=== PATIENT | female | born 1945 | race African-American/Black ===

== ENCOUNTER → 2016-07-17 | Outpatient (CLI) | payer OTHER ==
[~2016-07-17] VITALS: Ht 175.3 cm; Wt 92.5 kg
[~2016-07-17] MED LIST: CINNAMON PO; CO Q-10100 MG PO; HYDROCODONE-AP1 EAC6 PO; LOSARTAN-HCTZ1 EAC3 PO; METFORMIN HCL500 MG PO; NABUMETONE 750750 M1 PO; OMEGA-31000 M1 PO; PRAVACHOL40 MG PO; RESVERATROL100 MG PO; VITAMIN D1000 UNI1 PO
--- NOTE | ~2016-07-17 | HPC ---
[facility] [place] [address] PAIN MANAGEMENT CONSULTATION Name: WESSONIA Viveros Room #: REG [facility] Aniya#: [id number] Admission: 07/17/16 Attend Phys: Neri Chatterjee DO Discharge: Date of : 45 Report #: [id number] THIS REPORT FOR: //name// CC: Marita Chatterjee The patient is a very pleasant 71-year-old female, prior seen in the pain clinic, given a right L4-L5 transforaminal epidural injection on 03/02/2016. This afforded up to 50% relief, but pain, somewhat recurred. She was last seen on 06/26/2016. We sought authorization for repeat lumbar epidural injection. We elected to proceed with a midline approach today, and see if we can get little better coverage. The patient notes the pain continues to be problematic, rates it at 9/10, low back, right leg, lateral aspect. The pain is constant, sharp, and burning, exacerbated with walking and any activities. Physical exam is unchanged from her last visit. ASSESSMENT: Symptomatic lumbar radiculopathy secondary to spinal stenosis. PROCEDURE: Lumbar epidural injection under fluoroscopy. PROCEDURE NOTE: After both written and informed consent to include risk of spinal cord damage, increased pain, weakness and dural puncture, the patient was taken to the fluoroscopy suite, placed in the prone position. After sterile prep and drape, a skin wheal with lidocaine was raised. A 22-gauge epidural Tuohy needle was inserted in the midline at L4-L5 with good loss to resistance. Negative aspiration for cerebrospinal fluid or blood was noted. Then 1 mL of Omnipaque under biplanar fluoroscopy showed good spread within the epidural space. This was followed with 80 mg of triamcinolone plus 1 mL of 1.5% preservative-free Xylocaine, 0.5 mL Xylocaine was then injected to flush the needle; it was removed. The patient was monitored for an appropriate period of time and discharged in good and stable condition. <ELECTRONICALLY SIGNED> By: Neri Chatterjee DO 07/22/16 1031 [id number] Neri Chatterjee DO /nt
[2016-07-17 08:43] VITALS: BP 133/73
== END ==
LOC: PAIN 07:02
DX: M54.16 Radiculopathy, lumbar region (principal); M48.06 Spinal stenosis, lumbar region; I10 Essential (primary) hypertension

== ENCOUNTER → 2017-02-22 | Outpatient (CLI) | payer OTHER ==
[~2017-02-22] VITALS: Ht 175.3 cm; Wt 95.3 kg
--- NOTE | ~2017-02-22 | HPC ---
[facility] [place] [address] PAIN MANAGEMENT CONSULTATION Name: WESSONIA [facility] [id number] Admission: 02/22/17 Attend Phys: Neri Chatterjee DO Discharge: Date of : 45 Report #: [id number] THIS REPORT FOR: //name// CC: Marita Chatterjee SUBJECTIVE: The patient is a 72-year-old female, prior seen in the pain clinic back in July. She had had a lumbar epidural injection at that time, L4-L5 with excellent relief of pain, greater than 60% for 2-3 months. She notes in October, she had a flare without specific antecedent trauma and overuse. To her credit, she has continued to exercise 3 times a week. She cannot take anti-inflammatory medications due to history of [id number]-[id number] diabetes and hypertension with concerns for renal dysfunction. She notes pain is constant, burning, and sharp, rates it as 7 on a VAS, exacerbated with standing, walking and generally any activity. Some relief when she is sitting or recumbent. PHYSICAL EXAMINATION: GENERAL: A 72-year-old female. BMI is 31 kilograms per meter squared. VITAL SIGNS: Stable. MUSCULOSKELETAL: Rises from chair using armrest. Modestly antalgic gait favoring the right leg. Pain is in the classic right L4 distribution radiating into the anterior lateral thigh down the anterior william and into the great toe. Has a slight decreased right hip flexion and extension strength. Patellar reflex is diminished on the right. SKIN AND INTEGUMENT: Intact. DIAGNOSTIC STUDIES: Reviewed diagnostic findings while quite dated from 2010. She notes significant stenosis at L4-L5, canal narrowed to 6 mm. ASSESSMENT: Symptomatic lumbar radiculopathy secondary to spinal stenosis. The patient has had prior excellent relief with epidural injection in the past. RECOMMENDATIONS: We will plan on moving forward with a lumbar epidural injection under fluoroscopy for classic right L4 radicular pain. Midline L4-L5 epidural injection at last visit afforded good relief. The patient was discharged in good and stable condition. We will plan on moving forward with epidural injection at earliest possible date after authorization is acquired. By: [id number] Neri Chatterjee DO /nt
[2017-02-22 09:49] VITALS: BP 131/69
== END | disposition home or self-care (01) ==
LOC: PAIN 07:12
DX: M48.06 Spinal stenosis, lumbar region (principal); G89.29 Other chronic pain; E11.9 Type 2 diabetes mellitus without complications; I10 Essential (primary) hypertension; Z98.890 Other specified postprocedural states; Z79.899 Other long term (current) drug therapy

== ENCOUNTER → 2017-03-04 | Outpatient (CLI) | payer OTHER ==
[~2017-03-04] VITALS: Ht 175.3 cm; Wt 96.2 kg
--- NOTE | ~2017-03-04 | HPC ---
[place] [address] [place] [address] PAIN MANAGEMENT CONSULTATION Name: WESSONIA Viveros Room #: REG [facility] Aniya#: [id number] Admission: 03/04/17 Attend Phys: Neri Chatterjee DO Discharge: Date of : 45 Report #: [id number] THIS REPORT FOR: //name// CC: Marita Chatterjee The patient is a 72-year-old female, prior seen in the pain clinic February 22. We sought authorization for epidural injection under fluoroscopy. She has ongoing pain, low back, right greater than left. Prior epidural injection in July gave 60% relief for 2-3 months. We sought authorization for injection, which was accomplished. Returns to pain clinic today, notes symptoms are unchanged. Subjective pain score is 8-9 on VAS, pain is primarily right low back in L4 distribution. ASSESSMENT: Symptomatic lumbar radiculopathy secondary to spinal stenosis in a patient with diabetes. RECOMMENDATION AND PROCEDURE: Lumbar epidural injection under fluoroscopy at L4-L5, we will use 60 mg of triamcinolone in consideration of diabetes. PROCEDURE NOTE: PROCEDURE: Lumbar epidural steroid injection. PROCEDURE NOTE: After both written and informed consent to include risk of spinal cord damage, increased pain, weakness and dural puncture, the patient was taken to the fluoroscopy suite, placed in the prone position. After sterile prep and drape, a skin wheal with lidocaine was raised. A 22-gauge epidural Tuohy needle was inserted in the midline at L4-L5 with good loss to resistance. Negative aspiration for cerebrospinal fluid or blood was noted. Then 1 mL of Omnipaque under biplanar fluoroscopy showed good spread within the epidural space. This was followed with 60 mg of triamcinolone plus 1 mL of 1.5% preservative-free Xylocaine, 0.5 mL Xylocaine was then injected to flush the needle; it was removed. The patient was monitored for an appropriate period of time and discharged in good and stable condition. <ELECTRONICALLY SIGNED> By: Neri Chatterjee DO 03/05/17 1225 [id number] Neri Chatterjee DO /nt
[2017-03-04 09:35] VITALS: BP 125/69
== END | disposition home or self-care (01) ==
LOC: PAIN 06:53
DX: M48.06 Spinal stenosis, lumbar region (principal); G89.29 Other chronic pain; Z79.899 Other long term (current) drug therapy

== ENCOUNTER → 2017-04-26 | Outpatient (CLI) | payer OTHER | LOC: RAD 00:52 | DX: Z12.31 Encounter for screening mammogram for malignant neoplasm of breast (principal) ==

== ENCOUNTER → 2018-04-27 | Outpatient (CLI) | payer OTHER | LOC: RAD 02:45 | DX: Z12.31 Encounter for screening mammogram for malignant neoplasm of breast (principal) ==

== ENCOUNTER → 2019-04-28 | Outpatient (CLI) | payer OTHER | LOC: RAD 01:52 | DX: Z12.31 Encounter for screening mammogram for malignant neoplasm of breast (principal) ==

== ENCOUNTER → 2020-05-02 | Outpatient (CLI) | payer OTHER | LOC: RAD 13:57 | PROVIDERS: ATTEND Internal Medicine | DX: Z12.31 Encounter for screening mammogram for malignant neoplasm of breast (principal) ==

== ENCOUNTER → 2021-05-05 | Outpatient (CLI) | payer OTHER | LOC: BC 13:32 | PROVIDERS: ATTEND Internal Medicine | DX: Z12.31 Encounter for screening mammogram for malignant neoplasm of breast (principal); N64.89 Other specified disorders of breast ==